=== PATIENT | female | born 1985 | race Asian ===

== ENCOUNTER 2021-07-09 02:25 | Observation (INO) | payer MEDICAID ==
[2021-07-09] MEDS ORDERED: ACETAMINOPHEN 325 MG TABLET PO PRN ×2 (03:30→03:45)
[2021-07-09] MEDS ORDERED: NIFEdipine (O.B. USE ONLY) 10 MG CAPSULE PO ONE ×2 (03:30→03:33)
[2021-07-09] MEDS ORDERED: ACETAMINOPHEN 325 MG TABLET ONE (03:31)
== END 2021-07-09 04:30 | disposition home or self-care (01) ==
LOC: SPU 02:25
PROVIDERS: ADMIT Obstetrics & Gynecology; ATTEND Obstetrics & Gynecology
DX: O98.513 Other viral diseases complicating pregnancy, third trimester (principal); U07.1 COVID-19; O60.03 Preterm labor without delivery, third trimester; O30.003 Twin pregnancy, unspecified number of placenta and unspecified number of amniotic sacs, third trimester; O21.2 Late vomiting of pregnancy; O09.513 Supervision of elderly primigravida, third trimester; Z3A.31 31 weeks gestation of pregnancy
CPT/HCPCS: 59025; G0378; G0379; 59050; 99218